=== PATIENT | female | born 1965 ===

== ENCOUNTER 2017-03-29 07:06 | Emergency (ER) | payer MEDICAID, MEDICARE, OTHER ==
[2017-03-29 07:18] VITALS: TEMP 98.1
--- NOTE | 2017-03-29 07:40 | C.PDOC ---
History Of Present Illness 52 y/o female c/o lower abdominal pain/pressure for last 2 weeks, radiates to back, with difficulty passing urine, small amount comes out at a time, with frequency. no fever, nausea or vomiting, no diarrhea. last bm today - normal for patient, no change in appetite. no vaginal bleeding or discharge. pt is s/p hysterectomy 2/2 fibroids. Time Seen by Provider: 03/29/17 07:23 Chief Complaint (Nursing): Female Genitourinary History Per: Patient History/Exam Limitations: no limitations Onset/Duration Of Symptoms: Days (14) Current Symptoms Are (Timing): Still Present Severity: Moderate Quality Of Discomfort: Pressure Associated Symptoms: Chills. denies: Fever, Nausea, Vomiting, Diarrhea, Loss Of Appetite Past Medical History Reviewed: Historical Data, Nursing Documentation, Vital Signs Vital Signs: Last Vital Signs Temp 98.1 F 03/29/17 07:13 Pulse 84 03/29/17 07:13 Resp 16 03/29/17 07:13 BP 130/77 03/29/17 07:13 Pulse Ox 98 03/29/17 07:42 - Medical History PMH: HTN, Hypercholesterolemia, Hyperlipidemia, Hypothyroidism Denies: Chronic Kidney Disease Other Surgeries: hysterectomy - [facility] FUSION/REFUS OF 2-3 VERTEBRAE (02/18/13) LUMBAR & LUMBOSACRAL FUSION OF POSTERIOR COL/TECHNIQUE (02/18/13) PHYSICAL THERAPY NEC (05/13/13) Family History: States: Unknown Family Hx - Social History Hx Alcohol Use: No Hx Substance Use: No - Immunization History Hx Tetanus Toxoid Vaccination: No Hx Influenza Vaccination: No Hx Pneumococcal Vaccination: No Review Of Systems Constitutional: Positive for: Chills. Negative for: Fever Cardiovascular: Negative for: Chest Pain Respiratory: Negative for: Cough, Shortness of Breath Gastrointestinal: Positive for: Abdominal Pain. Negative for: Nausea, Vomiting , Diarrhea, Constipation Genitourinary: Positive for: Dysuria, Frequency. Negative for: Vaginal Discharge, Vaginal Bleeding Musculoskeletal: Positive for: Back Pain Neurological: Negative for: Weakness, Numbness Physical Exam - Physical Exam Appears: Non-toxic, No Acute Distress Skin: Warm, Dry Head: Atraumatic, Normacephalic Oral Mucosa: Moist Neck: Supple Cardiovascular: Rhythm Regular, No Murmur Respiratory: Normal Breath Sounds, No Rales, No Wheezing Gastrointestinal/Abdominal: Bowel Sounds, Soft, Tenderness (left and right pelvic area. most in suprapubic region) Back: No CVA Tenderness Neurological/Psych: Oriented x3, Normal Speech, Normal Cognition, Normal Motor, Normal Sensation ED Course And Treatment O2 Sat by Pulse Oximetry: 98 Medical Decision Making Medical Decision Making: pt with 2 weeks of urinary symptoms; check ua 826 am; pt with urinary symptoms. some wbc in urine. normal appetite, no fever or chills., will tx for uti. pt has appt with pmd on 04/05. advised to return to ED for any worsening symptoms. Disposition Counseled Patient/Family Regarding: Studies Performed, Diagnosis, Need For Followup, Rx Given - Disposition Referrals: Sung Lynn MD [Medical Doctor] - Disposition: HOME/ ROUTINE Disposition Time: 08:28 Condition: STABLE Additional Instructions: [place] los antibiticos segn lo prescrito. Brittanie lquidos aumentados, jugo de ar ndano es barton. Tylenol o Motrin para el dolor. Siga con [facility] mdico segn lo programado. Vuelva al ER para cualquier sntoma que empeora. Prescriptions: Nitrofurantoin Macrocrystals [Macrobid] 100 mg PO BID #14 cap Instructions: Urinary Tract Infection in Women (ED) Forms: Gen Discharge Inst Albanian, [facility] (Albanian) - Clinical Impression Clinical Impression: UTI (urinary tract infection)
[2017-03-29 08:18] LABS: RBC URINE 2 /hpf (0-3); URINE BACTERIA RARE (<OCC); URINE BILIRUBIN NEGATIVE (NEGATIVE); URINE BLOOD NEGATIVE (NEGATIVE); URINE COLOR Yellow (YELLOW); URINE GLUCOSE (UA) NORMAL (Normal); URINE KETONE NEGATIVE (NEGATIVE); URINE LEUKOCYTE ESTERASE TRACE Leu/uL (Negative); URINE PROTEIN NEGATIVE (NEGATIVE); URINE UROBILINOGEN NORMAL mg/dL (0.2-1.0); WBC URINE 11 /hpf (0-5)
[2017-03-29 08:55] VITALS: BP 118/74; PULSE 82; RESP 18
[2017-03-30 08:53] VITALS: O2SAT 98
== END 2017-03-29 08:55 | disposition home or self-care (01) ==
LOC: C.ER 07:06
DX: N39.0 Urinary tract infection, site not specified (principal); I10 Essential (primary) hypertension; E78.00 Pure hypercholesterolemia, unspecified; F17.210 Nicotine dependence, cigarettes, uncomplicated